=== PATIENT | male | born 1940 | race Caucasian/White ===

== ENCOUNTER → 2017-01-06 | Outpatient (CLI) | payer MEDICARE, BC ==
[2017-01-06 13:36] LABS: Blood Urea Nitrogen 19 mg/dL (9-20); Non-African American GFR(MDRD) 59 (>60 ml/min/1.73 sqM)
--- NOTE | 2017-01-06 14:36 | CT ---
EXAMINATION TYPE: CT angio abdomen DATE OF EXAM: 01/06/2017 2:14 PM COMPARISON: NONE HISTORY: AAA CT DLP: 1942 mGycm CONTRAST: CTA abdominal aorta with 3-D reconstruction is performed and without and with IV Contrast, patient i njected with 100 mL of Visipaque 320. Contrast CTA of the abdominal aorta was performed from the lung bases through the base of the pelvis . 3-D reconstruction imaging obtained at a separate workstation. CONTRAST CT ABDOMEN AND PELVIS Lung bases: There is cardiomegaly. Small pericardial effusion is identified. Small bilateral pleural effusions. ABDOMENAL AORTA: Infrarenal abdominal aortic saccular aneurysm measures 4.7 x 4.9 cm. The aneurysm is just proximal to the aortic bifurcation. Iliac vessels are ectatic though nonaneurysmal. Branch vess els are patent. LIVER/GB- No significant abnormality is seen. Small gallstones suspected in a contracted gallbladder. PANCREAS- No significant abnormality is seen. SPLEEN- No significant abnormality is seen. ADRENALS- No significant abnormality is seen. KIDNEYS/BLADDER-2.6 cm left renal cyst. Subcentimeter right renal cortical cyst. Hoover balloon cathet er seen within the urinary bladder. Bladder wall thickening is suggested although this could be relat ed to poor distention. BOWEL- No Significant abnormality GENITAL ORGANS: Enlarged prostate gland. LYMPH NODES- No greater than 1cm abdominal or pelvic lymph nodes areappreciated. OSSEOUS STRUCTURES- No significant abnormality is seen. OTHER- No significant abnormality is seen. IMPRESSION- 1. Saccular infrarenal abdominal aortic aneurysm as discussed.
== END | disposition home or self-care (01) ==
LOC: RADCTMAIN 12:52
PROVIDERS: ATTEND Thoracic Surgery (Cardiothoracic Vascular Surgery)
DX: I71.4 Abdominal aortic aneurysm, without rupture (principal)
CPT/HCPCS: 82565; 84520; 74175; 36415; Q9967

== ENCOUNTER → 2021-10-01 | Outpatient (CLI) | payer MEDICARE, BC ==
--- NOTE | 2021-10-01 17:58 | CT ---
EXAMINATION TYPE: CT angio abdomen DATE OF EXAM: 10/01/2021 INDICATION: AAA without rupture CT DLP: 2592.0 mGy.cm Automated Exposure Control for Dose Reduction was Utilized. TECHNIQUE AND CONTRAST: Multiphasic multiplanar CT scan of the abdomen and pelvis is performed without and with IV Contrast, patient injected with 80 mL of Isovue 370. 3-D reconstruction images were performed and reviewed COMPARISON: CT dated 10/07/2017 FINDINGS: Upper abdominal aortic stent at the level of the celiac trunk and superior mesenteric artery. There i s also previous infra renal abdominal aortic aneurysmal repair with aortobifemoral bypass graft. No e ndoleak appreciated with appropriate enhancement of the graft. No periaortic collection or hematoma. The aneurysm sac is stable in size demonstrating atheromatous calcifications within. Scattered arteri al atherosclerotic calcifications. Severe stenosis of the origin of the celiac trunk yet patent dista lly. Mild stenosis of the origin of the superior mesenteric artery and patent distally. The inferior mesenteric artery is nonopacified. Mild stenosis of the origin of the left renal artery. Scattered hepatic hypodensities, stable since 2017 CT scan likely representing hepatic cysts. Suspect ed hepatic steatosis. No new hepatic focal lesion. Suspected 9 mm faint stone at the gallbladder neck . Unremarkable spleen, adrenals and pancreas. Few left renal cysts without suspicious features measur ing up to 3.5 cm. 9 mm simple cyst is seen at the lower pole of the right kidney. 11 mm cyst is seen at the midpole of the right kidney with internal septation within, apparently was simple in 2017 CT s can. For follow-up CT scan in 6 months for reassessment. Questionable 2 mm nonobstructing calculus at the midpole of right kidney. No hydroureter or hydronephrosis. The urinary bladder is not distended. 7 mm dependent calculus is se en within the urinary bladder. Suspected urinary bladder intramural calcifications versus nonobstruct ing calculi. Heterogeneous prostate. Unremarkable seminal vesicles. Unremarkable nondistended stomach and duodenum. Previous subtotal colectomy and ileocolic anastomosis. Nonspecific wall thickening of the inferior aspect of the rectum. No evidence small bowel obstruction. Right inguinal hernia containing fat and a segment of the small bowel. No suspicious lymphadenopathy or sizable ascites. Cardiomegaly with coronary arterial calcifications. [id number] pericardial effusion. Old healed fractures of the left lower ribs. Degenerative changes of the lumbar spine and l eft hip joint. No aggressive bone lesion. No suspicious lung base lesion. Severe lumbar spinal canal stenosis at L3-4 level. IMPRESSION: 1. Upper abdominal aortic stent with infrarenal abdominal aortic aneurysmal repair and aortobifemoral bypass graft without evidence of endovascular leak or progression of the aneurysmal sac. 2. Arterial atherosclerotic calcifications and segments of stenosis as detailed above. 3. Right midpole renal cyst with internal septation within described above, for follow-up CT scan in 6 months. Other multiple incidental findings as detailed above.
== END | disposition home or self-care (01) ==
LOC: RADCTMAIN 08:09
PROVIDERS: ATTEND Internal Medicine Interventional Cardiology
DX: I71.4 Abdominal aortic aneurysm, without rupture (principal); I70.1 Atherosclerosis of renal artery; I77.4 Celiac artery compression syndrome; K55.1 Chronic vascular disorders of intestine; Z95.5 Presence of coronary angioplasty implant and graft
CPT/HCPCS: 82565; 84520; 74175; 36415; Q9967

== ENCOUNTER → 2023-02-16 | Outpatient (CLI) | payer MEDICARE, BC ==
--- NOTE | 2023-02-17 16:26 | XR ---
EXAMINATION TYPE: XR chest 2V DATE OF EXAM: 02/16/2023 3:19 PM COMPARISON: Chest radiographs from TECHNIQUE: XR chest 2V Frontal and lateral views of the chest. CLINICAL INDICATION:Male, 82 years old with history of COUGH; FINDINGS: Lungs/Pleura: No pleural effusion or pneumothorax. Patchy bibasilar airspace opacities. Elevation of the right hemidiaphragm. Pulmonary vascularity: Unremarkable. Heart/mediastinum: Cardiomediastinal silhouette is prominent in size. Suspected thoracic aortic aneu rysm measuring up to 6.8 cm. Musculoskeletal: No acute osseous pathology. IMPRESSION: 1. Patchy bibasilar airspace opacities which may represent atelectasis versus infiltrates. 2. Suspected 6.8 cm thoracic aortic aneurysm. Further evaluation with CTA chest is recommended. 3. Elevation of the right hemidiaphragm. This can be seen with diaphragmatic paralysis. This can be further evaluated with fluoroscopic sniff test.
== END | disposition home or self-care (01) ==
LOC: RADXRMAIN 14:58
PROVIDERS: ATTEND Nurse Practitioner Family
DX: J98.6 Disorders of diaphragm (principal); R06.02 Shortness of breath; R05.9 Cough, unspecified; R91.8 Other nonspecific abnormal finding of lung field
CPT/HCPCS: 71046

== ENCOUNTER → 2023-02-28 | Outpatient (CLI) | payer MEDICARE, BC ==
[2023-02-28 10:51] LABS: African American GFR (CKD) 55 (>60 ml/min/1.73 sqM); Blood Urea Nitrogen 27 mg/dL (9-20); Non-African American GFR(CKD) 48 (>60 ml/min/1.73 sqM)
--- NOTE | 2023-02-28 12:51 | CT ---
EXAMINATION TYPE: CT angio chest DATE OF EXAM: 02/28/2023 COMPARISON: 10/01/2021 abdomen and pelvis HISTORY: thoracic aneurysm CT DLP: 1652.6 mGycm CONTRAST: CTA thoracic aorta with 3-D reconstruction is performed and with IV Contrast, patient injected with 1 00 mL of Isovue 370. Contrast CTA of the thoracic aorta was performed from the lung apex through the upper abdomen. 3D re construction imaging obtained at a separate workstation. CT Chest: THORACIC AORTA: Large saccular aneurysm arising from the distal portion of the aortic arch with exten jaleel into the left apical region measuring 6.9 x 6.4 cm. There is mural thrombus noted measuring appr oximately 2.3 cm in thickness. No evidence for thoracic aortic aneurysm. No evidence of rupture at th is time. The ascending thoracic aorta and descending thoracic aorta of normal caliber. LUNGS: Lung volumes are diminished. Underlying fibrotic change noted scattered bilaterally greatest a t the lung bases. Mild dependent basilar atelectasis. MEDIASTINUM: No evidence for mediastinal hematoma. The heart is enlarged. There is pericardial eff usion with maximal thickness of 2.4 cm versus 2 cm previously. Coronary artery calcification seen. No evidence for mediastinal mass or adenopathy. HILAR STRUCTURES: No evidence for mass. No hilar adenopathy is appreciated. OTHER: Aortic stent graft with distal abdominal aortic aneurysm partially imaged. Left renal cyst. IMPRESSION- 1. Large saccular aneurysm arising from the distal portion of the aortic arch with extension into the left apical region. Aneurysm measures 6.9 x 6.4 cm without evidence for leak or rupture at this time . 2. Increasing pericardial effusion as discussed. 3. Underlying pulmonary fibrotic change.
== END | disposition home or self-care (01) ==
LOC: RADCTMAIN 09:57
PROVIDERS: ATTEND Family Medicine
DX: I71.22 Aneurysm of the aortic arch, without rupture (principal); I31.39 Other pericardial effusion (noninflammatory); J84.10 Pulmonary fibrosis, unspecified
CPT/HCPCS: 82565; 84520; 71275; 36415; Q9967

== ENCOUNTER → 2023-08-05 | Outpatient (CLI) | payer MEDICARE ==
[2023-08-05 10:19] LABS: Prothrombin Time 117.2 sec (10.0-12.5)
[2023-08-05 10:27] LABS: INR >10.0 (<1.2)
== END | disposition home or self-care (01) ==
LOC: LABWHC1 09:52
PROVIDERS: ATTEND Internal Medicine Interventional Cardiology
DX: I48.20 Chronic atrial fibrillation, unspecified (principal)
CPT/HCPCS: 36415; 85610

== ENCOUNTER → 2023-11-17 | Outpatient (CLI) | payer MEDICARE, BC | END | disposition home or self-care (01) | LOC: LABWHC1 09:04 | PROVIDERS: ATTEND Nurse Practitioner Family | DX: N18.32 Chronic kidney disease, stage 3b (principal) | CPT/HCPCS: 36415; 83735 ==

== ENCOUNTER → 2023-11-17 | Outpatient (CLI) | payer MEDICARE, BC ==
[2023-11-17 14:47] LABS: HCT 50.5 % (39.6-50.0); HGB 15.8 g/dL (13.0-17.0); MCH 30.4 pg (27.0-32.0); MCHC 31.3 g/dL (32.0-37.0); MCV 97.3 FL (80.0-97.0); Mean Platelet Volume 11.7 FL (9.5-12.2); NRBC Per 100 WBC 0 X 10*3/uL (0.00-0.01); Platelet Count 160 X 10*3/uL (140-440); RBC 5.19 X 10*6/uL (4.40-5.60); RDW 15.9 % (11.5-14.5); WBC 11.63 X 10*3/uL (4.50-10.00)
[2023-11-17 15:09] LABS: BUN/Creat Ratio 10.21 Ratio (12.00-20.00); Blood Urea Nitrogen 19.4 mg/dL (9.0-27.0); Calcium 9.9 mg/dL (8.7-10.3); Carbon Dioxide 21.5 mmol/L (21.6-31.8); Chloride 107 mmol/L (96-109); Glucose 151 mg/dL (70-110); Potassium 4.6 mmol/L (3.5-5.5); Sodium 142 mmol/L (135-145)
[2023-11-17 17:02] LABS: Basophils # (M) 0.12 X 10*3/uL (0.00-0.10); Elliptocytes 2+; Lymphocytes # (M) 0.93 X 10*3/uL (0.90-5.00); Macrocytosis (M) 2+; Monocytes # (M) 1.16 X 10*3/uL (0.20-1.00); Myelocytes % 1 % (0-0); Neutrophils # (M) 8.61 X 10*3/uL (1.80-7.70); Neutrophils % (M) 74 %
== END | disposition home or self-care (01) ==
LOC: LABPAT 09:06
PROVIDERS: ATTEND Urology
DX: Z01.812 Encounter for preprocedural laboratory examination (principal); N21.0 Calculus in bladder
CPT/HCPCS: 80048; 85025

== ENCOUNTER 2023-11-24 08:54 | Day surgery (SDC) | payer MEDICARE, BC ==
--- NOTE | 2023-11-20 19:26 | P.GSHP ---
History of Present Illness H&P Date: 11/20/23 Chief Complaint: Urinary frequency, mixed urinary incontinence The patient is an 83-year-old white male with a 1.6 cm right cystic renal mass, suspicious for renal cell carcinoma. He reports moderate obstructive and irritative voiding symptoms despite taking tamsulosin and finasteride. He was treated for UTI in 2020. Bladder emptying is adequate. However, imaging shows bladder wall thickening and multiple bladder calculi. Cystoscopy reveals approximately 10 bladder calculi measuring up to 1.5 cm in size. - Cardiovascular Cardiovascular: Reports high blood pressure - Genitourinary (Male) Genitourinary: Reports incontinence, Denies dysuria, Denies hematuria Past Medical History Past Medical History: Atrial Fibrillation, Heart Failure, Hyperlipidemia, Hypertension Additional Past Medical History / Comment(s): hx of colon cancer, aortic aneurysm, stage III CKD History of Any Multi-Drug Resistant Organisms: None Reported Additional Past Surgical History / Comment(s): Abdominal aortic stent graft; colon resection Past Psychological History: No Psychological Hx Reported Smoking Status: Never smoker Past Alcohol Use History: None Reported Past Drug Use History: None Reported - Past Family History Mother Additional Family Medical History / Comment(s): Patient unsure of mother's history; maternal grandfather from aneurysm at 39 years old Father Additional Family Medical History / Comment(s): Patient unsure of father's history Brother(s) Additional Family Medical History / Comment(s): Diet from aneurysm Sister(s) Additional Family Medical History / Comment(s): Thought to have from aneurysm although no autopsy was done Medications and Allergies Home Medications Medication Instructions Recorded Confirmed Type Ascorbic Acid [Vitamin C] 500 mg PO DAILY 02/28/23 02/28/23 History Atorvastatin [Lipitor] 20 mg PO DAILY 02/28/23 02/28/23 History Brimonidine Tartrate [Alphagan P 1 drop LEFT EYE BID 02/28/23 02/28/23 History 0.2% Ophth Soln] Calcium Carbonate [Calcium] 1,200 mg PO DAILY 02/28/23 02/28/23 History Cholecalciferol [Vitamin D3 (25 25 mcg PO DAILY 02/28/23 02/28/23 History Mcg = 1000 Iu)] Cyanocobalamin (Vitamin B-12) 1,000 mcg PO DAILY 02/28/23 02/28/23 History [Vitamin B-12] Donepezil [Aricept] 10 mg PO HS 02/28/23 02/28/23 History Escitalopram [Lexapro] 10 mg PO DAILY 02/28/23 02/28/23 History Finasteride [Proscar] 5 mg PO HS 02/28/23 02/28/23 History Gabapentin 300 mg PO BID 02/28/23 02/28/23 History Glucosamine(Unknown Dose) 1 tab PO BID 02/28/23 02/28/23 History Magnesium Oxide [Magox 400] 400 mg PO BID 02/28/23 02/28/23 History Memantine [Namenda] 10 mg PO DAILY 02/28/23 02/28/23 History Metoprolol Tartrate [Lopressor] 25 mg PO HS 02/28/23 02/28/23 History Metoprolol Tartrate [Lopressor] 50 mg PO DAILY 02/28/23 02/28/23 History Multivitamins, Thera [Multivitamin 1 tab PO DAILY 02/28/23 02/28/23 History (formulary)] Omeprazole [PriLOSEC] 20 mg PO DAILY 02/28/23 02/28/23 History Tamsulosin [Flomax] 0.4 mg PO BID 02/28/23 02/28/23 History Ubidecarenone [Co Q-10] 400 mg PO DAILY 02/28/23 02/28/23 History calcitrioL 0.25 mcg PO DIRECTED 02/28/23 02/28/23 History dilTIAZem HCL [Cartia Xt] 180 mg PO DAILY 02/28/23 02/28/23 History Allergies Allergy/AdvReac Type Severity Reaction Status Date / Time No Known Allergies Allergy Verified 02/28/23 18:12 Surgical - Exam - General well developed, well nourished, no distress - Respiratory normal respiratory effort - Abdomen Abdomen: soft, non tender, no guarding, no rigid, no rebound - Psychiatric oriented to time, oriented to person, oriented to place, speech is normal, memory intact Results - Imaging CT scan - abdomen: report reviewed, image reviewed Assessment and Plan (1) Calculus in bladder Status: Acute Code(s): N21.0 - CALCULUS IN BLADDER SNOMED Code(s): 03933501 Plan: Cystoscopy with cystolithotripsy. The procedure has been reviewed in detail with the patient, his , and his daughter. They are aware of potential risks, which include anesthesia, bleeding, infection, postoperative urinary retention, and bladder perforation.
[2023-11-21 11:37] VITALS: BMI 28.3
[~2023-11-24 08:54] MED LIST: HYDROmorphone 0.5 MG/0.5 ML SYRINGE IVP PRN; LIDOCAINE 1% (10MG/ML) FOR IV START INTRADERMA PRN; MIDAZOLAM 2 MG/2 ML VIAL IV PRN
--- NOTE | 2023-11-24 09:11 | XR ---
EXAMINATION TYPE: XR KUB DATE OF EXAM: 11/24/2023 HISTORY: Pain Comparison: None. Single KUB is submitted for interpretation. Findings: Right renal calculi: None Visualized. Right ureteral calculi: None Visualized. Left renal calculi: None Visualized. Left ureteral calculi: Vague opaque density in the region of the left UPJ measures 1.4 cm. Correlate clinically. Pelvic calcifications: Yes Bowel gas pattern is unremarkable. No free air. No mass effects. Bilateral iliac stents. Vascular c alcifications. Rings of sutures noted right lower quadrant. IMPRESSION: 1. As above
[2023-11-24] MEDS: LACTATED RINGERS 1,000 ML IV SCH (09:17)
[2023-11-24] MEDS: DEXAMETHASONE SOD PHOSPHATE 4 MG/ML 1 ML VIAL IV ONE (09:52)
[2023-11-24] MEDS: ONDANSETRON 4 MG/2 ML VIAL IVP ONE (09:52)
[2023-11-24] MEDS ORDERED: SUCCINYLCHOLINE CHLORIDE 200 MG/10 ML VIAL IV ONE (10:04)
[2023-11-24] MEDS ORDERED: PROPOFOL 10 MG/ML 20 ML VIAL IV ONE (10:04)
[2023-11-24] MEDS ORDERED: ESMOLOL 100 MG/10 ML VIAL ONE (10:04)
[2023-11-24] MEDS ORDERED: LIDOCAINE 1% INJ 10MG/ML (20 ML MDV) ONE (10:04)
[2023-11-24] MEDS ORDERED: VASOPRESSIN 20 UNIT/ML 1 ML VIAL ONE (10:04)
[2023-11-24] MEDS ORDERED: fentaNYL (PF) 50 MCG/ML 2 ML AMP ONE (10:04)
[2023-11-24] MEDS ORDERED: ePHEDrine 50 MG/ML 1 ML VIAL ONE (10:04)
[2023-11-24] MEDS ORDERED: PHENYLEPHRINE-0.9% NACL SYG 1,000 MCG/10 ML SYRINGE ONE (10:04)
--- NOTE | 2023-11-24 11:30 | P.OP ---
Date of Procedure: 11/24/23 Preoperative Diagnosis: Bladder calculi Postoperative Diagnosis: Same Procedure(s) Performed: Cystoscopy with cystolithotripsy Anesthesia: GRAEME Surgeon: Shan Da Silva Estimated Blood Loss (ml): 10 IV fluids (ml): 700 Pathology: other (Bladder calculus fragments, sent for chemical analysis) Condition: stable Disposition: PACU Indications for Procedure: The patient is an 83-year-old white male with a 1.6 cm right cystic renal mass, suspicious for renal cell carcinoma. He reports moderate obstructive and irritative voiding symptoms despite taking tamsulosin and finasteride. He was treated for UTI in 2020. Bladder emptying is adequate. However, imaging shows bladder wall thickening and multiple bladder calculi. Cystoscopy reveals approximately 10 bladder calculi measuring up to 1.5 cm in size. Operative Findings: Multiple bladder calculi measuring up to 1.5 cm in size, all removed completely. Description of Procedure: The patient was taken to the operating room and placed in the dorsal lithotomy position, with legs supported in Markell stirrups. The external genitalia was prepped and draped sterilely. The 30 lens was used to introduce the 21-Setswana Villafana cystoscopic sheath through the urethra and into the bladder under direct vision. The urethra appeared normal. The prostate showed evidence of trilobar enlargement and was visually occluded. The bladder was examined in its entir ety. The ureteral orifices appeared normal. Multiple calculi measuring up to 1.5 cm in size were seen. No tumors were seen. There were multiple small diverticuli. Using the 1000 micron Holmium laser probe, lithotripsy was performed. After removing all of the calculi floating freely within the bladder, close inspection of the diverticuli revealed to at the right posterior bladder dome containing calculi. These calculi were carefully treated with laser lithotripsy and removed in their entirety. Once all calculus fragments had been removed from the bladder, the bladder was inspected. There was no active bleeding, and no evidence of bladder perforation. An 18-Setswana Hoover catheter was placed. The return was essentially clear. The patient tolerated the procedure well was taken to the recovery room in stable condition.
[2023-11-24] MEDS: METOPROLOL TARTRATE 5 MG/5 ML VIAL IVP ONE ×2 (11:55→12:01)
[2023-11-24] MEDS ORDERED: IPRATROPIUM-ALBUTEROL 3 ML NEB INHALATION STA (12:00)
[2023-11-24 12:16] VITALS: RESP 16; TEMP 97.8
[2023-11-24] MEDS: IPRATROPIUM-ALBUTEROL 3 ML NEB ONE (12:21)
[2023-11-24 14:21] VITALS: BP 104/65; PULSE 90
== END 2023-11-24 14:12 | disposition home or self-care (01) ==
LOC: OR 08:54
PROVIDERS: ATTEND Urology
DX: N21.0 Calculus in bladder (principal); I48.91 Unspecified atrial fibrillation; I13.0 Hypertensive heart and chronic kidney disease with heart failure and stage 1 through stage 4 chronic kidney disease, or unspecified chronic kidney disease; N18.30 Chronic kidney disease, stage 3 unspecified; I50.9 Heart failure, unspecified; E78.5 Hyperlipidemia, unspecified; J84.10 Pulmonary fibrosis, unspecified; Z85.038 Personal history of other malignant neoplasm of large intestine; Z79.899 Other long term (current) drug therapy; Z79.01 Long term (current) use of anticoagulants; Z95.5 Presence of coronary angioplasty implant and graft; Z99.81 Dependence on supplemental oxygen
CPT/HCPCS: 52317; 82365; 74018; J0330; J1100; J0690; J2405; J2001; J3010; J2704; J2371; J1805

== ENCOUNTER → 2023-12-30 | Outpatient (CLI) | payer MEDICARE, BC ==
--- NOTE | 2023-12-31 15:37 | MR ---
EXAMINATION TYPE: MR abdomen wo con DATE OF EXAM: 12/30/2023 3:12 PM CLINICAL INDICATION:Male, 83 years old with history of D41.01 RIGHT RENAL MASS; PHH, Right renal mass COMPARISON: 02/26/2023. TECHNIQUE: Multiplanar multi-sequence imaging was performed without contrast. Post contrast imaging was performed. IV Contrast: cc FINDINGS: LOWER CHEST: Small pericardial effusion. ABDOMEN Liver: No evidence for hepatic steatosis or cirrhosis. Scattered simple appearing hepatic cysts with high T2 signal. Gallbladder and Bile ducts: No evidence for ductal dilation, or biliary stricture or evidence of chol edocholithiasis. The gallbladder is within normal limits. Pancreas: No ductal dilation. No evidence for solid mass. Spleen: Normal for size. Adrenal glands: Unremarkable. Kidneys: Absence of contrast limits evaluation. Respiratory motion limits evaluation There is a left superior renal high T2 signal lesion measuring 48 mm. Right renal lesion measuring 20 mm in the lateral aspect of kidney and another inferiorly measuring 1 0 mm. The larger lesion has some heterogeneous. No evidence for obstructive uropathy. Stomach and Bowel: No evidence for bowel wall thickening or evidence for obstruction. Small hiatal he rnia present Retroperitoneum/Peritoneum: No evidence of pneumoperitoneum or free fluid. Vasculature: No aortic aneurysm. Infrarenal abdominal aortic aneurysm measuring up to 56 mm. Bilatera l iliac stent graft partially visualized. Musculoskeletal: The osseous structures appear intact. Lymph Nodes: No gross evidence for lymphadenopathy. Abdominal wall: Unremarkable. IMPRESSION: 1. Noncontrast limits evaluation for masses. Indeterminate right renal lesions, probably representin g cysts. Consider short-term follow-up to ensure stability in 6 months with MRI. 2. Simple appearing hepatic cyst. 3. Simple appearing left renal cyst. 4. Small pericardial effusion. 5. Infrarenal abdominal aortic aneurysm with stent graft.
== END | disposition home or self-care (01) ==
LOC: RADMRIMAIN 13:46
PROVIDERS: ATTEND Urology
DX: N28.1 Cyst of kidney, acquired (principal); K76.89 Other specified diseases of liver; D41.01 Neoplasm of uncertain behavior of right kidney; I31.39 Other pericardial effusion (noninflammatory); I71.43 Infrarenal abdominal aortic aneurysm, without rupture; Z95.828 Presence of other vascular implants and grafts
CPT/HCPCS: 74181